=== PATIENT | female | born 1995 | race Caucasian/White ===

== ENCOUNTER 2016-12-13 00:59 | Emergency (ER) | payer OTHER ==
[~2016-12-13] VITALS: Ht 182.9 cm; Wt 63.0 kg
[~2016-12-13 00:59] MED LIST: AMOXICILLIN500 MG PO; BACTRIM,SEPT1 TABLET PO; CIPRO500 MG PO; CLOZARIL100 MG PO; CYCLOBENZAPRINE10 MG PO; FIORICET 50-301 EACH PO; GEODON20 MG PO; IMITREX25 MG PO; IMITREX50 MG PO; KEFLEX500 MG PO; KEPPRA1000 MG PO; KEPPRA500 MG PO; LAMICTAL100 MG PO; LEVETIRACETAM500 MG PO; LORTAB 5-325 M1 EACH PO; MELATONIN5 MG SL; MOTRIN800 MG PO; NORCO 5/3251 TABLET PO; PERCOCET 5/31 TABLET PO; PROAIR HFA8.5 GM IH; REGLAN10 MG PO; RISPERDAL1 MG PO; TOPAMAX25 MG PO; TRINESSA1 EACH PO; VENTOLIN HFA18 GM IH; ZOFRAN ODT4 MG PO; ZOFRAN4 MG PO; ZOFRAN8 MG PO; ZOLOFT100 MG PO
[2016-12-13 02:36] VITALS: BP 139/75
== END 2016-12-13 02:43 | disposition home or self-care (01) ==
LOC: EME 00:59
PROC: 0HQ0XZZ Repair Scalp Skin, External Approach (ICD-10-PCS; principal; 2016-12-13)
DX: S01.01XA Laceration without foreign body of scalp, initial encounter (principal); W22.09XA Striking against other stationary object, initial encounter; F17.200 Nicotine dependence, unspecified, uncomplicated
CPT/HCPCS: 70450; 99281; 99284; J3360

== ENCOUNTER 2016-12-24 14:39 | Emergency (ER) | payer OTHER ==
[~2016-12-24] VITALS: Ht 182.9 cm; Wt 59.9 kg
[2016-12-24 15:35] LABS: HEMATOCRIT 45.7 % (36.0-46.0); MCHC 33.5 G/DL (30.0-36.0); MCV 89.6 FL (83-99); MEAN PLAT.VOLUME 11.1 uM^3 (9.5-12.4); PLATELET COUNT 271 K/uL (156-360); RBC DIS.WIDTH-CV 13.2 % (11.8-14.6); RBC DIS.WIDTH-SD 43.8 % (39-53); WHITE BLOOD COUNT 9.2 K/uL (4.1-10.2)
[2016-12-24 15:49] LABS: CHLORIDE 104 mEq/L (99-109); D-DIMER ELISA < 0.15 mg/L FEU (< 0.57); SODIUM 139 mEq/L (136-147)
[2016-12-24 15:51] LABS: GLUCOSE 90 mg/dL (70-99)
[2016-12-24 15:52] LABS: ANION GAP 12 MEQ/L (2-14)
[2016-12-24 15:53] LABS: TOTAL BILIRUBIN 0.7 mg/dL (0.0-1.0)
[2016-12-24 15:54] LABS: ALKALINE PHOSPHATASE 73 IU/L (3-129)
[2016-12-24 15:55] LABS: GFR ESTIMATE (CALCULATED) > 59 mL/min/
[2016-12-24 15:56] LABS: UREA NITROGEN (BUN) 15 mg/dL (9-23)
[2016-12-24 15:57] LABS: TROP-I INTERPRETATION NEGATIVE; TROPONIN-I < 0.01 ng/mL (0.0-0.30)
[2016-12-24 16:07] LABS: QUANTITATIVE HCG < 4.0 MIU/ML
[2016-12-24 17:13] VITALS: BP 130/68
== END 2016-12-24 17:15 | disposition home or self-care (01) ==
LOC: EME → EDBD 14:39 → EME 17:15
PROVIDERS: Emergency Medicine
DX: R07.9 Chest pain, unspecified (principal); R56.9 Unspecified convulsions; F17.200 Nicotine dependence, unspecified, uncomplicated
CPT/HCPCS: 71010; 80053; 84484; 84702; 85027; 85379; 93005; 99281; 99285; J1885

== ENCOUNTER 2017-03-17 11:54 | Emergency (ER) | payer SELFPAY ==
[~2017-03-17] VITALS: Ht 182.9 cm; Wt 60.7 kg
[2017-03-17 12:43] LABS: HEMATOCRIT 45.5 % (36.0-46.0); MCH 30.1 PG (29.0-34.0); MCHC 33.8 G/DL (30.0-36.0); MEAN PLAT.VOLUME 11.1 uM^3 (9.5-12.4); PLATELET COUNT 240 K/uL (156-360); RBC DIS.WIDTH-CV 12.4 % (11.8-14.6); RED BLOOD COUNT 5.11 M/uL (3.80-5.20); WHITE BLOOD COUNT 7.6 K/uL (4.1-10.2)
[2017-03-17 12:49] LABS: CHLORIDE 105 mEq/L (99-109); POTASSIUM 3.8 mEq/L (3.7-5.4); SODIUM 141 mEq/L (136-147)
[2017-03-17 12:51] LABS: GLUCOSE 104 mg/dL (70-99)
[2017-03-17 12:52] LABS: ANION GAP 12 MEQ/L (2-14)
[2017-03-17 12:54] LABS: SERUM ETHYL ALCOHOL < 10 mg/dL
[2017-03-17 12:55] LABS: GFR ESTIMATE (CALCULATED) > 59 mL/min/
[2017-03-17 12:56] LABS: UREA NITROGEN (BUN) 14 mg/dL (9-23)
[2017-03-17 15:22] LABS: ADD MEDTOX COMMENT Y; AMPHETAMINE NEGATIVE (500 ng/mL); BARBITURATES NEGATIVE (200 ng/mL); BENZODIAZEPINES NEGATIVE (150 ng/mL); COCAINE NEGATIVE (150 ng/mL); INTERNAL CONTROLS VALID? YES; METHADONE NEGATIVE (200 ng/mL); METHAMPHETAMINE NEGATIVE (500 ng/mL); OPIATES (MORPHINE) NEGATIVE (100 ng/mL); OXYCODONE PRESUMPTIVE POSITIVE (100 ng/mL); PHENCYCLIDINE NEGATIVE (25 ng/mL); PROPOXYPHENE NEGATIVE (300 ng/mL); THC CANNABINOIDS PRESUMPTIVE POSITIVE (50 ng/mL); TRICYCLIC ANTIDEPRESSANTS NEGATIVE (300 ng/mL)
[2017-03-17] MEDS ORDERED: KLONOPIN0.5 M1 PO (16:58)
[2017-03-17 17:36] VITALS: BP 161/85
== END 2017-03-17 17:40 | disposition home or self-care (01) ==
LOC: EME 11:54
DX: F43.20 Adjustment disorder, unspecified (principal); F41.9 Anxiety disorder, unspecified; F32.9 Major depressive disorder, single episode, unspecified; G40.909 Epilepsy, unspecified, not intractable, without status epilepticus; Z88.6 Allergy status to analgesic agent; Z88.8 Allergy status to other drugs, medicaments and biological substances; F17.200 Nicotine dependence, unspecified, uncomplicated
CPT/HCPCS: 80048; 84999; 85027; 90839; 99281; 99285; G0480

== ENCOUNTER 2017-03-20 17:05 | Inpatient (IN) | payer OTHER ==
[~2017-03-20] VITALS: Ht 185.4 cm; Wt 60.7 kg
[~2017-03-20 17:05] MED LIST changes: +KLONOPIN0.5 M1 PO
[2017-03-20 17:41] LABS: HEMATOCRIT 41.4 % (36.0-46.0); MCH 30.1 PG (29.0-34.0); MCHC 34.3 G/DL (30.0-36.0); MCV 87.9 FL (83-99); PLATELET COUNT 204 K/uL (156-360); RBC DIS.WIDTH-CV 12.2 % (11.8-14.6); RBC DIS.WIDTH-SD 39.1 % (39-53); RED BLOOD COUNT 4.71 M/uL (3.80-5.20); WHITE BLOOD COUNT 14.3 K/uL (4.1-10.2)
[2017-03-20 17:51] LABS: CHLORIDE 107 mEq/L (99-109); POTASSIUM 3.7 mEq/L (3.7-5.4); SODIUM 140 mEq/L (136-147)
[2017-03-20 17:52] LABS: GLUCOSE 100 mg/dL (70-99)
[2017-03-20 17:54] LABS: ANION GAP 11 MEQ/L (2-14)
[2017-03-20 17:55] LABS: SERUM ETHYL ALCOHOL < 10 mg/dL
[2017-03-20 17:56] LABS: GFR ESTIMATE (CALCULATED) > 59 mL/min/
[2017-03-20 17:57] LABS: UREA NITROGEN (BUN) 15 mg/dL (9-23)
[2017-03-20 18:47] LABS: ADD MIUA? YES; BILIRUBIN NEGATIVE; BLOOD NEGATIVE; COLOR YELLOW ((YELLOW)); GLUCOSE (STRIP) NEGATIVE; KETONES NEGATIVE; LEUKOCYTES TRACE; NITRITE NEGATIVE; PROTEIN (STRIP) >=500; UROBILINOGEN 0.2 MG/DL (0.2-1.0)
[2017-03-20 18:55] LABS: AMPHETAMINE NEGATIVE (500 ng/mL); BARBITURATES NEGATIVE (200 ng/mL); BENZODIAZEPINES PRESUMPTIVE POSITIVE (150 ng/mL); COCAINE NEGATIVE (150 ng/mL); INTERNAL CONTROLS VALID? YES; METHADONE NEGATIVE (200 ng/mL); METHAMPHETAMINE NEGATIVE (500 ng/mL); OPIATES (MORPHINE) PRESUMPTIVE POSITIVE (100 ng/mL); OXYCODONE NEGATIVE (100 ng/mL); PHENCYCLIDINE NEGATIVE (25 ng/mL); PROPOXYPHENE NEGATIVE (300 ng/mL); THC CANNABINOIDS PRESUMPTIVE POSITIVE (50 ng/mL); TRICYCLIC ANTIDEPRESSANTS NEGATIVE (300 ng/mL)
[2017-03-20 18:56] LABS: ADD MEDTOX COMMENT Y
[2017-03-20 19:01] LABS: BACTERIA NONE SEEN /HPF; EPITHELIAL CELLS RARE /HPF; MUCUS NONE SEEN /LPF; RED BLOOD CELLS 0-5 /HPF (0-5); UCUL ADDED? NO; WHITE BLOOD CELLS 0-5 /HPF (0-5)
[2017-03-20 19:25] LABS: BENZODIAZEPINES, URINE SCREEN POSITIVE (200 ng/mL)
[2017-03-20] MEDS ORDERED: PERCOCET 5/31 TABLET PO ×2 (19:56→19:57)
[2017-03-20] MEDS ORDERED: VALIUM5 MG PO (19:59)
[2017-03-20] MEDS ORDERED: ZOLOFT50 MG PO (20:00)
[2017-03-20] MEDS ORDERED: nicotine gum (20:43)
[2017-03-20] MEDS ORDERED: FLOVENT (20:44)
[2017-03-20] MEDS ORDERED: ALBUTEROL INHALLER (20:45)
[2017-03-20 21:12] LABS: POINT-OF-CARE METER ID UU13113702
[2017-03-20] MEDS ORDERED: FIORICET WI1 CAPSULE PO (21:23)
[2017-03-20] MEDS ORDERED: BOTOX (21:25)
[2017-03-21 01:47] VITALS: BP 148/61
[2017-03-21 08:09] VITALS: BP 113/58
[2017-03-21 10:59] LABS: CREATINE KINASE 139 IU/L (1-294); TOTAL CK 139 IU/L (1-294)
[2017-03-21 16:06] VITALS: BP 122/55
[2017-03-22 01:08] LABS: EOSINOPHIL (%) 1.7 % (0-5); EOSINOPHIL COUNT 0.1 K/uL (0-0.3); HEMATOCRIT 39.8 % (36.0-46.0); IMMATURE GRANULOCYTE (%) 0.1 % (0.0-0.7); LYMPHOCYTE COUNT 2.7 K/uL (1.0-2.8); MCH 30.5 PG (29.0-34.0); MCHC 34.2 G/DL (30.0-36.0); MCV 89.2 FL (83-99); MEAN PLAT.VOLUME 11.7 uM^3 (9.5-12.4); MONOCYTE (%) 11.2 % (3-12); MONOCYTE COUNT 0.9 K/uL (0-0.8); NEUTROPHIL (%) 51.8 % (45-76); PLATELET COUNT 204 K/uL (156-360); RBC DIS.WIDTH-CV 12.4 % (11.8-14.6); RBC DIS.WIDTH-SD 41.1 % (39-53); RED BLOOD COUNT 4.46 M/uL (3.80-5.20); WHITE BLOOD COUNT 7.7 K/uL (4.1-10.2)
[2017-03-22 01:11] LABS: CHLORIDE 107 mEq/L (99-109); POTASSIUM 3.5 mEq/L (3.7-5.4); SODIUM 139 mEq/L (136-147)
[2017-03-22 01:13] LABS: GLUCOSE 101 mg/dL (70-99)
[2017-03-22 01:14] LABS: ANION GAP 16 MEQ/L (2-14)
[2017-03-22 01:15] LABS: TOTAL BILIRUBIN 0.4 mg/dL (0.0-1.0)
[2017-03-22 01:17] LABS: ALKALINE PHOSPHATASE 60 IU/L (3-129); GFR ESTIMATE (CALCULATED) > 59 mL/min/
[2017-03-22 01:18] LABS: UREA NITROGEN (BUN) 9 mg/dL (9-23)
== END 2017-03-22 00:56 | DRG 885 ==
LOC: EME 17:05 → EDOF 19:07 → 1WEST 19:07 → ENRESERV 03-21 00:02 → 1WEST 03-21 01:08
PROVIDERS: Hospitalist; Internal Medicine; Physician Assistant Medical; Psychiatry & Neurology Psychiatry
DX: F33.2 Major depressive disorder, recurrent severe without psychotic features (principal); R45.851 Suicidal ideations; F43.12 Post-traumatic stress disorder, chronic; F60.3 Borderline personality disorder; F17.210 Nicotine dependence, cigarettes, uncomplicated; F90.9 Attention-deficit hyperactivity disorder, unspecified type; G40.409 Other generalized epilepsy and epileptic syndromes, not intractable, without status epilepticus; G43.909 Migraine, unspecified, not intractable, without status migrainosus; J45.909 Unspecified asthma, uncomplicated; N80.9 Endometriosis, unspecified; Z59.0 Homelessness; Z91.14 Patient's other noncompliance with medication regimen; Z62.810 Personal history of physical and sexual abuse in childhood; Z62.811 Personal history of psychological abuse in childhood
CPT/HCPCS: 70450; 80048; 80053; 81003; 82550; 82553; 82948; 83605; 84146; 84999; 85025; 85027; 90839; 99281; 99285; G0480; J1953; J2060; J2765; J3360; J3486; J7050

== ENCOUNTER 2017-03-22 00:31 | Inpatient (IN) | payer OTHER ==
[~2017-03-22] VITALS: Ht 182.9 cm; Wt 60.0 kg
[~2017-03-22 00:31] MED LIST changes: +ALBUTEROL INHALLER; +BOTOX; +FIORICET WI1 CAPSULE PO; +FLOVENT; +VALIUM5 MG PO; +ZOLOFT50 MG PO; +nicotine gum
[2017-03-22 01:56] VITALS: BP 121/57
[2017-03-22 06:05] LABS: HEMATOCRIT 35.1 % (36.0-46.0); MCH 30.1 PG (29.0-34.0); MCHC 34.2 G/DL (30.0-36.0); MEAN PLAT.VOLUME 11.5 uM^3 (9.5-12.4); PLATELET COUNT 196 K/uL (156-360); RBC DIS.WIDTH-CV 12.3 % (11.8-14.6); RED BLOOD COUNT 3.99 M/uL (3.80-5.20); WHITE BLOOD COUNT 5.6 K/uL (4.1-10.2)
[2017-03-22 06:44] LABS: ALKALINE PHOSPHATASE 44 IU/L (3-129); ANION GAP 7 MEQ/L (2-14); CHLORIDE 108 MEQ/L (99-109); GFR ESTIMATE (CALCULATED) > 59 mL/min/; GLUCOSE 83 mg/dL (70-99); SAMPLE HEMOLYSIS CHECK 0; SAMPLE ICTERIC CHECK 0; SAMPLE LIPEMIA CHECK 0; SODIUM 141 MEQ/L (136-147); TOTAL BILIRUBIN 0.4 MG/DL (0.0-1.0); UREA NITROGEN (BUN) 9 mg/dL (9-23)
[2017-03-22 06:49] LABS: POTASSIUM 4.3 MEQ/L (3.7-5.4)
[2017-03-22 07:27] VITALS: BP 114/64
[2017-03-22 11:01] VITALS: BP 111/68
[2017-03-22 15:16] VITALS: BP 113/65
[2017-03-22 19:42] VITALS: BP 127/55
[2017-03-22 23:42] VITALS: BP 102/53
[2017-03-23 08:14] VITALS: BP 1115/61
[2017-03-23 09:00] LABS: QUANTITATIVE HCG < 4.0 MIU/ML
[2017-03-23 12:00] VITALS: BP 130/63
[2017-03-23 16:00] VITALS: BP 122/68
[2017-03-23 19:32] VITALS: BP 107/62
[2017-03-23 23:41] VITALS: BP 128/51
[2017-03-24 03:32] VITALS: BP 92/55
[2017-03-24 07:59] VITALS: BP 119/51
[2017-03-24 11:00] VITALS: BP 120/67
[2017-03-24] MEDS ORDERED: TRILEPTAL300 MG PO (14:17)
[2017-03-24] MEDS ORDERED: NICOTINE PATCH1 EAC2 TD (14:17)
[2017-03-24] MEDS ORDERED: KEPPRA1000 MG PO (14:17)
[2017-03-24 16:00] VITALS: BP 155/79
[2017-03-24] MEDS ORDERED: ZOFRAN4 MG PO (20:59)
[2017-03-24] MEDS ORDERED: CYCLOBENZAPRINE5 MG PO (21:00)
[2017-03-24] MEDS ORDERED: TYLENOL ARTHRI650 MG PO (21:02)
== END 2017-03-24 20:00 | DRG 101 ==
LOC: 5SOUTH 00:31 → ENRESERV 00:32 → 5SOUTH 01:08
PROVIDERS: Internal Medicine
DX: G40.909 Epilepsy, unspecified, not intractable, without status epilepticus (principal); F33.2 Major depressive disorder, recurrent severe without psychotic features; F43.12 Post-traumatic stress disorder, chronic; F60.3 Borderline personality disorder; F41.9 Anxiety disorder, unspecified; R45.851 Suicidal ideations; F17.210 Nicotine dependence, cigarettes, uncomplicated; F12.90 Cannabis use, unspecified, uncomplicated
CPT/HCPCS: 80053; 83605; 84702; 85027; 93005; 93306; J1644; J1885; J1953; J2405; J2765; J7050; J7120

== ENCOUNTER 2017-03-24 20:09 | Inpatient (IN) | payer OTHER ==
[~2017-03-24] VITALS: Ht 182.9 cm; Wt 60.0 kg
[~2017-03-24 20:09] MED LIST changes: +NICOTINE PATCH1 EAC2 TD; +TRILEPTAL300 MG PO
[2017-03-24 20:23] VITALS: BP 123/65
[2017-03-24] MEDS ORDERED: ZOFRAN4 MG PO (20:59)
[2017-03-24] MEDS ORDERED: CYCLOBENZAPRINE5 MG PO (21:00)
[2017-03-24] MEDS ORDERED: TYLENOL ARTHRI650 MG PO (21:02)
[2017-03-25 07:03] VITALS: BP 119/54
[2017-03-25 15:26] VITALS: BP 124/62
[2017-03-26 06:10] VITALS: BP 114/56
[2017-03-26 07:26] VITALS: BP 106/50
[2017-03-26 15:18] VITALS: BP 132/90
[2017-03-27 07:36] VITALS: BP 116/72
[2017-03-27 12:38] LABS: ADD MIUA? YES; BILIRUBIN NEGATIVE; BLOOD MODERATE; COLOR YELLOW ((YELLOW)); GLUCOSE (STRIP) NEGATIVE; KETONES NEGATIVE; LEUKOCYTES NEGATIVE; NITRITE NEGATIVE; PROTEIN (STRIP) >=500; SPECIFIC GRAVITY 1.014 (1.000-1.030); UROBILINOGEN 0.2 MG/DL (0.2-1.0)
[2017-03-27 12:44] LABS: BACTERIA NONE SEEN /HPF; EPITHELIAL CELLS RARE /HPF; MUCUS TRACE /LPF; RED BLOOD CELLS TNTC /HPF (0-5); WHITE BLOOD CELLS 0-5 /HPF (0-5)
[2017-03-27 16:04] VITALS: BP 133/71
[2017-03-28 07:45] VITALS: BP 117/64
[2017-03-28] MEDS ORDERED: SERTRALINE HCL100 MG PO (09:54)
[2017-03-28] MEDS ORDERED: VALIUM5 MG PO (09:54)
[2017-03-28] MEDS ORDERED: KEPPRA1000 MG PO (09:54)
[2017-03-28] MEDS ORDERED: TRILEPTAL300 MG PO (09:54)
== END 2017-03-28 11:45 | disposition home or self-care (01) | DRG 882 ==
LOC: 1WEST 20:09
PROVIDERS: Psychiatry & Neurology Psychiatry
DX: F45.9 Somatoform disorder, unspecified (principal); F41.1 Generalized anxiety disorder; F60.3 Borderline personality disorder; M25.562 Pain in left knee; W06.XXXA Fall from bed, initial encounter; Y92.230 Patient room in hospital as the place of occurrence of the external cause; G40.909 Epilepsy, unspecified, not intractable, without status epilepticus; J45.909 Unspecified asthma, uncomplicated; F43.10 Post-traumatic stress disorder, unspecified; F32.9 Major depressive disorder, single episode, unspecified; F12.90 Cannabis use, unspecified, uncomplicated; F17.210 Nicotine dependence, cigarettes, uncomplicated; F10.10 Alcohol abuse, uncomplicated; Z59.0 Homelessness
CPT/HCPCS: 73560; 81003; 97150 GO; 97165 GO; Q0177

== ENCOUNTER 2017-04-24 15:09 | Emergency (ER) | payer OTHER ==
[~2017-04-24] VITALS: Ht 182.9 cm; Wt 62.7 kg
[~2017-04-24 15:09] MED LIST changes: +CYCLOBENZAPRINE5 MG PO; +SERTRALINE HCL100 MG PO; +TYLENOL ARTHRI650 MG PO
[2017-04-24] MEDS ORDERED: VISTARIL25 MG PO (15:40)
[2017-04-24] MEDS ORDERED: PERCOCET 5/31 TABLET PO (15:41)
[2017-04-24 15:47] LABS: CHLORIDE 111 mEq/L (99-109); POTASSIUM 3.6 mEq/L (3.7-5.4); SODIUM 144 mEq/L (136-147)
[2017-04-24 15:48] LABS: GLUCOSE 96 mg/dL (70-99)
[2017-04-24 15:50] LABS: ANION GAP 12 MEQ/L (2-14)
[2017-04-24 15:52] LABS: GFR ESTIMATE (CALCULATED) > 59 mL/min/
[2017-04-24 15:53] LABS: UREA NITROGEN (BUN) 13 mg/dL (9-23)
[2017-04-24 16:00] LABS: QUANTITATIVE HCG < 4.0 MIU/ML
[2017-04-24 16:38] LABS: ADD MIUA? NO; BILIRUBIN NEGATIVE; BLOOD NEGATIVE; COLOR YELLOW ((YELLOW)); GLUCOSE (STRIP) NEGATIVE; KETONES 5; LEUKOCYTES NEGATIVE; NITRITE NEGATIVE; PROTEIN (STRIP) 30; SPECIFIC GRAVITY 1.023 (1.000-1.030); UROBILINOGEN 0.2 MG/DL (0.2-1.0)
[2017-04-24 16:39] LABS: UCUL ADDED? NO
[2017-04-24] MEDS ORDERED: TRILEPTAL600 MG PO (16:59)
[2017-04-24] MEDS ORDERED: VALIUM5 MG PO (16:59)
[2017-04-24 18:00] VITALS: BP 118/70
[2017-04-25] MEDS ORDERED: IBUPROFEN600 MG PO (18:53)
== END 2017-04-24 18:15 | disposition home or self-care (01) ==
LOC: EME 15:09
PROVIDERS: Emergency Medicine
DX: G40.909 Epilepsy, unspecified, not intractable, without status epilepticus (principal); F41.9 Anxiety disorder, unspecified; F17.200 Nicotine dependence, unspecified, uncomplicated
CPT/HCPCS: 80048; 81003; 84702; 93005; 99281; 99284; J2405; J7030

== ENCOUNTER 2017-04-25 17:24 | Emergency (ER) | payer OTHER ==
[~2017-04-25] VITALS: Ht 182.9 cm; Wt 59.0 kg
[~2017-04-25 17:24] MED LIST changes: +TRILEPTAL600 MG PO; +VISTARIL25 MG PO
[2017-04-25 17:59] LABS: EOSINOPHIL (%) 2.1 % (0-5); EOSINOPHIL COUNT 0.2 K/uL (0-0.3); HEMATOCRIT 35.7 % (36.0-46.0); IMMATURE GRANULOCYTE (%) 0.1 % (0.0-0.7); INSTRUMENT ABS NEUTROPHIL CT 4.7 K/uL; LYMPHOCYTE COUNT 2.3 K/uL (1.0-2.8); MCH 30.2 PG (29.0-34.0); MCHC 34.5 G/DL (30.0-36.0); MCV 87.7 FL (83-99); MEAN PLAT.VOLUME 11.3 uM^3 (9.5-12.4); MONOCYTE COUNT 0.5 K/uL (0-0.8); NEUTROPHIL (%) 61.5 % (45-76); NEUTROPHIL COUNT 4.7 K/uL (1.8-6.4); PLATELET COUNT 244 K/uL (156-360); RBC DIS.WIDTH-CV 12.7 % (11.8-14.6); RBC DIS.WIDTH-SD 40.4 % (39-53); RED BLOOD COUNT 4.07 M/uL (3.80-5.20); WHITE BLOOD COUNT 7.7 K/uL (4.1-10.2)
[2017-04-25 18:14] LABS: CHLORIDE 107 mEq/L (99-109); POTASSIUM 3.9 mEq/L (3.7-5.4); SODIUM 139 mEq/L (136-147)
[2017-04-25 18:16] LABS: GLUCOSE 97 mg/dL (70-99)
[2017-04-25 18:17] LABS: ANION GAP 15 MEQ/L (2-14)
[2017-04-25 18:20] LABS: GFR ESTIMATE (CALCULATED) > 59 mL/min/
[2017-04-25 18:21] LABS: UREA NITROGEN (BUN) 7 mg/dL (9-23)
[2017-04-25] MEDS ORDERED: IBUPROFEN600 MG PO (18:53)
[2017-04-25 19:07] VITALS: BP 122/78
== END 2017-04-25 19:08 | disposition home or self-care (01) ==
LOC: EME 17:24
PROVIDERS: Emergency Medicine
DX: S70.01XA Contusion of right hip, initial encounter (principal); G40.909 Epilepsy, unspecified, not intractable, without status epilepticus; W17.89XA Other fall from one level to another, initial encounter; F17.200 Nicotine dependence, unspecified, uncomplicated; Z88.6 Allergy status to analgesic agent; Z88.8 Allergy status to other drugs, medicaments and biological substances
CPT/HCPCS: 80048; 85025; 99281; 99283; J1885

== ENCOUNTER 2017-04-28 20:07 | Emergency (ER) | payer OTHER ==
[~2017-04-28] VITALS: Ht 167.6 cm; Wt 64.0 kg
[~2017-04-28 20:07] MED LIST changes: +IBUPROFEN600 MG PO
[2017-04-28 21:07] LABS: HEMATOCRIT 34.8 % (36.0-46.0); MCH 30.5 PG (29.0-34.0); MCHC 34.5 G/DL (30.0-36.0); MCV 88.5 FL (83-99); MEAN PLAT.VOLUME 10.8 uM^3 (9.5-12.4); PLATELET COUNT 271 K/uL (156-360); RBC DIS.WIDTH-CV 12.8 % (11.8-14.6); RBC DIS.WIDTH-SD 41.5 % (39-53); RED BLOOD COUNT 3.93 M/uL (3.80-5.20)
[2017-04-28 21:11] LABS: CHLORIDE 106 mEq/L (99-109); POTASSIUM 3.6 mEq/L (3.7-5.4); SODIUM 143 mEq/L (136-147)
[2017-04-28 21:12] LABS: GLUCOSE 78 mg/dL (70-99)
[2017-04-28 21:14] LABS: ANION GAP 11 MEQ/L (2-14)
[2017-04-28 21:15] LABS: SERUM ETHYL ALCOHOL < 10 mg/dL
[2017-04-28 21:16] LABS: GFR ESTIMATE (CALCULATED) > 59 mL/min/
[2017-04-28 21:17] LABS: UREA NITROGEN (BUN) 11 mg/dL (9-23)
[2017-04-28 21:19] LABS: CREATINE KINASE 53 IU/L (1-294)
[2017-04-28 21:32] LABS: QUANTITATIVE HCG < 4.0 MIU/ML
[2017-04-28 23:13] LABS: AMPHETAMINE NEGATIVE (500 ng/mL); COCAINE NEGATIVE (150 ng/mL); METHAMPHETAMINE NEGATIVE (500 ng/mL); OPIATES (MORPHINE) NEGATIVE (100 ng/mL); PHENCYCLIDINE NEGATIVE (25 ng/mL); THC CANNABINOIDS PRESUMPTIVE POSITIVE (50 ng/mL)
[2017-04-28 23:14] LABS: ADD MEDTOX COMMENT Y; BARBITURATES NEGATIVE (200 ng/mL); BENZODIAZEPINES PRESUMPTIVE POSITIVE (150 ng/mL); INTERNAL CONTROLS VALID? YES; METHADONE NEGATIVE (200 ng/mL); OXYCODONE NEGATIVE (100 ng/mL); PROPOXYPHENE NEGATIVE (300 ng/mL); TRICYCLIC ANTIDEPRESSANTS NEGATIVE (300 ng/mL)
[2017-04-28 23:52] VITALS: BP 135/88
[2017-04-29 01:28] LABS: BENZODIAZEPINES, URINE SCREEN POSITIVE (200 ng/mL)
== END 2017-04-28 23:53 | disposition home or self-care (01) ==
LOC: EME → EDSEX 20:07 → EDBD 20:07 → EME 23:53
PROVIDERS: Emergency Medicine
DX: R56.9 Unspecified convulsions (principal); F12.10 Cannabis abuse, uncomplicated; F17.200 Nicotine dependence, unspecified, uncomplicated
CPT/HCPCS: 80048; 80156; 80184; 80185; 81003; 82550; 84702; 84999; 85027; 99281; 99284; G0480; J1953; J2250; J7030; J7050

== ENCOUNTER 2017-05-01 18:45 | Emergency (ER) | payer OTHER ==
[~2017-05-01] VITALS: Ht 182.9 cm; Wt 59.7 kg
[2017-05-01 19:12] LABS: HEMATOCRIT 36.4 % (36.0-46.0); MCHC 34.1 G/DL (30.0-36.0); MCV 87.9 FL (83-99); MEAN PLAT.VOLUME 10.5 uM^3 (9.5-12.4); PLATELET COUNT 298 K/uL (156-360); RBC DIS.WIDTH-CV 12.6 % (11.8-14.6); RBC DIS.WIDTH-SD 41.1 % (39-53); RED BLOOD COUNT 4.14 M/uL (3.80-5.20)
[2017-05-01 19:30] LABS: CHLORIDE 106 mEq/L (99-109); POTASSIUM 3.9 mEq/L (3.7-5.4); SODIUM 140 mEq/L (136-147)
[2017-05-01 19:31] LABS: GLUCOSE 96 mg/dL (70-99)
[2017-05-01 19:33] LABS: ANION GAP 10 MEQ/L (2-14)
[2017-05-01 19:35] LABS: GFR ESTIMATE (CALCULATED) > 59 mL/min/
[2017-05-01 19:36] LABS: UREA NITROGEN (BUN) 11 mg/dL (9-23)
[2017-05-01 19:43] LABS: QUANTITATIVE HCG < 4.0 MIU/ML
[2017-05-01 21:24] VITALS: BP 110/56
== END 2017-05-01 21:26 | disposition home or self-care (01) ==
LOC: EME
PROVIDERS: Emergency Medicine
DX: G40.909 Epilepsy, unspecified, not intractable, without status epilepticus (principal); J45.909 Unspecified asthma, uncomplicated; F41.9 Anxiety disorder, unspecified; F32.9 Major depressive disorder, single episode, unspecified; F17.200 Nicotine dependence, unspecified, uncomplicated; Z88.8 Allergy status to other drugs, medicaments and biological substances
CPT/HCPCS: 80048; 84702; 85027; 99281; 99284; J1953; J2250; J7050

== ENCOUNTER 2017-05-15 12:53 | Inpatient (IN) | payer OTHER ==
[2017-05-15] VITALS (11 sets, daily range): BP systolic 100–121; BP diastolic 51–71
[~2017-05-15] VITALS: Ht 182.9 cm; Wt 70.5 kg
[2017-05-15 13:43] LABS: EOSINOPHIL (%) 0.2 % (0-5); HEMATOCRIT 37.8 % (36.0-46.0); IMMATURE GRANULOCYTE (%) 0.5 % (0.0-0.7); IMMATURE GRANULOCYTE COUNT 0.1 K/uL; INSTRUMENT ABS NEUTROPHIL CT 10.1 K/uL; LYMPHOCYTE COUNT 1.7 K/uL (1.0-2.8); MCH 30.2 PG (29.0-34.0); MCHC 33.9 G/DL (30.0-36.0); MCV 89.2 FL (83-99); MEAN PLAT.VOLUME 10.7 uM^3 (9.5-12.4); MONOCYTE (%) 5.3 % (3-12); MONOCYTE COUNT 0.7 K/uL (0-0.8); NEUTROPHIL COUNT 10.1 K/uL (1.8-6.4); PLATELET COUNT 226 K/uL (156-360); RBC DIS.WIDTH-SD 42.4 % (39-53); RED BLOOD COUNT 4.24 M/uL (3.80-5.20); WHITE BLOOD COUNT 12.6 K/uL (4.1-10.2)
[2017-05-15 13:45] LABS: ADD MIUA? NO; BILIRUBIN NEGATIVE; BLOOD NEGATIVE; COLOR YELLOW ((YELLOW)); GLUCOSE (STRIP) NEGATIVE; KETONES NEGATIVE; LEUKOCYTES NEGATIVE; NITRITE NEGATIVE; PROTEIN (STRIP) NEGATIVE; SPECIFIC GRAVITY 1.008 (1.000-1.030); UCUL ADDED? NO; UROBILINOGEN 0.2 MG/DL (0.2-1.0)
[2017-05-15 13:51] LABS: CHLORIDE 107 mEq/L (99-109); POTASSIUM 3.6 mEq/L (3.7-5.4); SODIUM 140 mEq/L (136-147)
[2017-05-15 13:53] LABS: GLUCOSE 81 mg/dL (70-99)
[2017-05-15 13:54] LABS: ANION GAP 9 MEQ/L (2-14)
[2017-05-15 13:55] LABS: TOTAL BILIRUBIN 0.3 mg/dL (0.0-1.0)
[2017-05-15 13:56] LABS: SERUM ETHYL ALCOHOL < 10 mg/dL
[2017-05-15 13:57] LABS: GFR ESTIMATE (CALCULATED) > 59 mL/min/
[2017-05-15 13:58] LABS: ALKALINE PHOSPHATASE 55 IU/L (3-129)
[2017-05-15 13:58] LABS: AMPHETAMINE NEGATIVE (500 ng/mL); BARBITURATES NEGATIVE (200 ng/mL); BENZODIAZEPINES PRESUMPTIVE POSITIVE (150 ng/mL); COCAINE NEGATIVE (150 ng/mL); INTERNAL CONTROLS VALID? YES; METHADONE NEGATIVE (200 ng/mL); METHAMPHETAMINE NEGATIVE (500 ng/mL); OPIATES (MORPHINE) NEGATIVE (100 ng/mL); OXYCODONE NEGATIVE (100 ng/mL); PHENCYCLIDINE NEGATIVE (25 ng/mL); PROPOXYPHENE NEGATIVE (300 ng/mL); THC CANNABINOIDS PRESUMPTIVE POSITIVE (50 ng/mL); TRICYCLIC ANTIDEPRESSANTS NEGATIVE (300 ng/mL)
[2017-05-15 13:59] LABS: ADD MEDTOX COMMENT Y
[2017-05-15 13:59] LABS: UREA NITROGEN (BUN) 9 mg/dL (9-23)
[2017-05-15 14:00] LABS: SALICYLATE < 5.0 MG/DL (15-30)
[2017-05-15 14:01] LABS: CREATINE KINASE 104 IU/L (1-294); TOTAL CK 104 IU/L (1-294)
[2017-05-15 14:07] LABS: QUANTITATIVE HCG < 4.0 MIU/ML
[2017-05-15 14:08] LABS: CK-MB 1.1 ng/mL (0.0-4.9)
[2017-05-15 14:48] LABS: BASE EXCESS -0.4 mEq/L (-3 to +3); BICARBONATE 22.6 mEq/L (22-26); CARBOXY HGB 1.4 % (0-5); COMMENTS - BLOOD GASES A+C+; DEVICE PB 980; METHEMOGLOBIN 0.9 % (0-1.5); PCO2 31 mm Hg (35-45); PO2 155 mm Hg (80-100); SITE RR; pH 7.47 (7.35-7.45)
[2017-05-15 14:49] LABS: FI02 50 %; MODE SPONT; PEEP 5 CM/H20; PRES. SUPPORT 10 CM/H2O; TOTAL RESP RATE 19 resp/min
[2017-05-15 15:45] LABS: BENZODIAZEPINES, URINE SCREEN POSITIVE (200 ng/mL)
[2017-05-15 17:51] LABS: METH RESISTANT S AUREUS PCR NEGATIVE (NEGATIVE)
[2017-05-15 17:53] LABS: PROBE CHECK PASS; SPECIMEN PROCESSING CONTROL PASS
[2017-05-16] VITALS (24 sets, daily range): BP systolic 90–120; BP diastolic 31–68
[2017-05-16 05:56] LABS: HEMATOCRIT 32.6 % (36.0-46.0); MCH 30.2 PG (29.0-34.0); MCHC 33.4 G/DL (30.0-36.0); MCV 90.3 FL (83-99); MEAN PLAT.VOLUME 10.7 uM^3 (9.5-12.4); PLATELET COUNT 194 K/uL (156-360); RBC DIS.WIDTH-CV 13.2 % (11.8-14.6); RBC DIS.WIDTH-SD 43.8 % (39-53); RED BLOOD COUNT 3.61 M/uL (3.80-5.20)
[2017-05-16 06:10] LABS: CHLORIDE 111 mEq/L (99-109); POTASSIUM 3.4 mEq/L (3.7-5.4)
[2017-05-16 06:11] LABS: SODIUM 141 mEq/L (136-147)
[2017-05-16 06:12] LABS: GLUCOSE 87 mg/dL (70-99)
[2017-05-16 06:14] LABS: ANION GAP 8 MEQ/L (2-14)
[2017-05-16 06:16] LABS: GFR ESTIMATE (CALCULATED) > 59 mL/min/
[2017-05-16 06:17] LABS: UREA NITROGEN (BUN) 10 mg/dL (9-23)
[2017-05-16] MEDS ORDERED: DIAZEPAM5 MG PO (08:46)
[2017-05-16] MEDS ORDERED: ATARAX,VISTARIL25 MG PO (08:47)
[2017-05-16] MEDS ORDERED: ENDOCET 5-3251 EACH PO (08:47)
[2017-05-16] MEDS ORDERED: TRILEPTAL600 MG PO (08:47)
[2017-05-16] MEDS ORDERED: LIDOCAINE HCL35 GM TP (08:48)
[2017-05-16] MEDS ORDERED: LEVETIRACETAM500 MG PO (08:48)
[2017-05-16] MEDS ORDERED: ZOFRAN4 MG PO (08:51)
[2017-05-16 09:01] LABS: BASE EXCESS 0 mEq/L (-3 to +3); BICARBONATE 24.8 mEq/L (22-26); CARBOXY HGB 1.4 % (0-5); METHEMOGLOBIN 1.2 % (0-1.5)
[2017-05-16 09:02] LABS: PCO2 40 mm Hg (35-45); PO2 53 mm Hg (80-100)
[2017-05-16 09:03] LABS: COMMENTS - BLOOD GASES NA C+; DEVICE VENT; FI02 30 %; MECHANICAL RATE 16 resp/min; MODE AC; PEEP 5 CM/H20; SITE RR; TIDAL VOLUME 450 ML; TOTAL RESP RATE 16 resp/min
[2017-05-16] MEDS ORDERED: ZOLOFT100 MG PO (09:05)
[2017-05-16 09:33] LABS: MAGNESIUM 1.6 mg/dL (1.3-2.7)
[2017-05-17] VITALS (24 sets, daily range): BP systolic 90–141; BP diastolic 37–73
[2017-05-17 08:39] LABS: HEMATOCRIT 32.6 % (36.0-46.0); MCHC 32.8 G/DL (30.0-36.0); MCV 94.5 FL (83-99); MEAN PLAT.VOLUME 11.3 uM^3 (9.5-12.4); PLATELET COUNT 152 K/uL (156-360); RBC DIS.WIDTH-CV 14.1 % (11.8-14.6); RBC DIS.WIDTH-SD 48.2 % (39-53); RED BLOOD COUNT 3.45 M/uL (3.80-5.20); WHITE BLOOD COUNT 13.7 K/uL (4.1-10.2)
[2017-05-17 09:07] LABS: ANION GAP 12 MEQ/L (2-14); CHLORIDE 108 MEQ/L (99-109); GFR ESTIMATE (CALCULATED) > 59 mL/min/; GLUCOSE 87 mg/dL (70-99); MAGNESIUM 1.7 mg/dl (1.3-2.7); SAMPLE HEMOLYSIS CHECK 0; SAMPLE ICTERIC CHECK 0; SAMPLE LIPEMIA CHECK 0; SODIUM 140 MEQ/L (136-147); UREA NITROGEN (BUN) 9 mg/dL (9-23)
[2017-05-18] VITALS (23 sets, daily range): BP systolic 90–121; BP diastolic 38–64
[2017-05-18 00:17] LABS: COMMENTS - BLOOD GASES A+C+; DEVICE VENT; FI02 35 %; MECHANICAL RATE 16 resp/min; MODE AC; PCO2 45 mm Hg (35-45); PEEP 5 CM/H20; SITE RR; TIDAL VOLUME 450 ML; pH 7.41 (7.35-7.45)
[2017-05-18 00:18] LABS: BASE EXCESS 3.3 mEq/L (-3 to +3); BICARBONATE 28.5 mEq/L (22-26); CARBOXY HGB 0.8 % (0-5); METHEMOGLOBIN 1.4 % (0-1.5); PO2 82 mm Hg (80-100)
[2017-05-18 00:54] LABS: EOSINOPHIL (%) 1.8 % (0-5); EOSINOPHIL COUNT 0.2 K/uL (0-0.3); HEMATOCRIT 29.8 % (36.0-46.0); IMMATURE GRANULOCYTE (%) 0.4 % (0.0-0.7); INSTRUMENT ABS NEUTROPHIL CT 7.6 K/uL; MCH 30.5 PG (29.0-34.0); MCHC 33.2 G/DL (30.0-36.0); MCV 91.7 FL (83-99); MEAN PLAT.VOLUME 10.7 uM^3 (9.5-12.4); MONOCYTE (%) 6.1 % (3-12); MONOCYTE COUNT 0.6 K/uL (0-0.8); NEUTROPHIL (%) 81.2 % (45-76); NEUTROPHIL COUNT 7.6 K/uL (1.8-6.4); PLATELET COUNT 132 K/uL (156-360); RBC DIS.WIDTH-CV 13.7 % (11.8-14.6); RBC DIS.WIDTH-SD 46.7 % (39-53); RED BLOOD COUNT 3.25 M/uL (3.80-5.20); WHITE BLOOD COUNT 9.4 K/uL (4.1-10.2)
[2017-05-18 01:07] LABS: CHLORIDE 109 mEq/L (99-109); POTASSIUM 3.7 mEq/L (3.7-5.4); SODIUM 139 mEq/L (136-147)
[2017-05-18 01:09] LABS: GLUCOSE 94 mg/dL (70-99)
[2017-05-18 01:11] LABS: ANION GAP 7 MEQ/L (2-14)
[2017-05-18 01:13] LABS: ALKALINE PHOSPHATASE 49 IU/L (3-129); GFR ESTIMATE (CALCULATED) > 59 mL/min/
[2017-05-18 01:14] LABS: UREA NITROGEN (BUN) 7 mg/dL (9-23)
[2017-05-18 01:15] LABS: DIRECT BILIRUBIN 0.1 mg/dL (0.0-0.3)
[2017-05-18 01:16] LABS: TOTAL CK 1308 IU/L (1-294)
[2017-05-18 01:21] LABS: TOTAL BILIRUBIN 0.2 mg/dL (0.0-1.0)
[2017-05-18 01:24] LABS: CREATINE KINASE 1308 IU/L (1-294)
[2017-05-18 03:10] LABS: CK-MB 9.3 ng/mL (0.0-4.9)
[2017-05-18 03:21] LABS: SAMPLE HEMOLYSIS CHECK 0; SAMPLE ICTERIC CHECK 0; SAMPLE LIPEMIA CHECK 0
[2017-05-18 03:27] LABS: TRIGLYCERIDES 101 MG/DL (Normal: <150)
[2017-05-19] VITALS (20 sets, daily range): BP systolic 101–140; BP diastolic 45–86
[2017-05-19 05:47] LABS: EOSINOPHIL COUNT 0.1 K/uL (0-0.3); HEMATOCRIT 28.6 % (36.0-46.0); IMMATURE GRANULOCYTE (%) 0.2 % (0.0-0.7); LYMPHOCYTE COUNT 0.9 K/uL (1.0-2.8); MCHC 32.5 G/DL (30.0-36.0); MCV 92.3 FL (83-99); MONOCYTE COUNT 0.5 K/uL (0-0.8); NEUTROPHIL (%) 72.1 % (45-76); PLATELET COUNT 136 K/uL (156-360); RBC DIS.WIDTH-CV 13.9 % (11.8-14.6); RBC DIS.WIDTH-SD 47.6 % (39-53); WHITE BLOOD COUNT 5.5 K/uL (4.1-10.2)
[2017-05-19 06:37] LABS: ANION GAP 7 MEQ/L (2-14); CHLORIDE 106 MEQ/L (99-109); GFR ESTIMATE (CALCULATED) > 59 mL/min/; GLUCOSE 79 mg/dL (70-99); MAGNESIUM 1.8 mg/dl (1.3-2.7); POTASSIUM 3.8 MEQ/L (3.7-5.4); SAMPLE HEMOLYSIS CHECK 0; SAMPLE ICTERIC CHECK 0; SAMPLE LIPEMIA CHECK 0; SODIUM 141 MEQ/L (136-147); UREA NITROGEN (BUN) 5 mg/dL (9-23)
[2017-05-19 20:10] LABS: BASE EXCESS 6.3 mEq/L (-3 to +3); BICARBONATE 28.4 mEq/L (22-26); COMMENTS - BLOOD GASES A+C+; DEVICE NC; METHEMOGLOBIN 1.4 % (0-1.5); O2 FLOW 3 L/MIN; PCO2 31 mm Hg (35-45); PO2 54 mm Hg (80-100); SITE RR; pH 7.57 (7.35-7.45)
[2017-05-19 20:11] LABS: TOTAL RESP RATE 40 resp/min
[2017-05-20] VITALS (18 sets, daily range): BP systolic 105–134; BP diastolic 52–94
[2017-05-20 05:40] LABS: EOSINOPHIL (%) 0.1 % (0-5); HEMATOCRIT 32.1 % (36.0-46.0); IMMATURE GRANULOCYTE (%) 0.3 % (0.0-0.7); INSTRUMENT ABS NEUTROPHIL CT 6.4 K/uL; LYMPHOCYTE COUNT 0.6 K/uL (1.0-2.8); MCH 30.5 PG (29.0-34.0); MCHC 33.3 G/DL (30.0-36.0); MCV 91.5 FL (83-99); MEAN PLAT.VOLUME 11.4 uM^3 (9.5-12.4); MONOCYTE (%) 4.7 % (3-12); MONOCYTE COUNT 0.4 K/uL (0-0.8); NEUTROPHIL (%) 86.2 % (45-76); NEUTROPHIL COUNT 6.4 K/uL (1.8-6.4); RBC DIS.WIDTH-CV 13.5 % (11.8-14.6); RBC DIS.WIDTH-SD 45.7 % (39-53); RED BLOOD COUNT 3.51 M/uL (3.80-5.20); WHITE BLOOD COUNT 7.4 K/uL (4.1-10.2)
[2017-05-20 05:52] LABS: PLATELET COUNT 203 K/uL (156-360)
[2017-05-20 05:58] LABS: ANION GAP 9 MEQ/L (2-14); CHLORIDE 106 MEQ/L (99-109); GFR ESTIMATE (CALCULATED) > 59 mL/min/; MAGNESIUM 1.7 mg/dl (1.3-2.7); POTASSIUM 4.2 MEQ/L (3.7-5.4); SAMPLE HEMOLYSIS CHECK 0; SAMPLE ICTERIC CHECK 0; SAMPLE LIPEMIA CHECK 0; SODIUM 142 MEQ/L (136-147); UREA NITROGEN (BUN) 4 mg/dL (9-23)
[2017-05-20 06:00] LABS: GLUCOSE 107 mg/dL (70-99)
[2017-05-21 00:06] VITALS: BP 109/58
[2017-05-21 03:46] VITALS: BP 111/65
[2017-05-21 09:05] VITALS: BP 121/64
[2017-05-21 19:19] VITALS: BP 135/63
[2017-05-22 03:55] VITALS: BP 123/77
[2017-05-22 05:57] LABS: MCH 30.3 PG (29.0-34.0); MCHC 33.4 G/DL (30.0-36.0); MCV 90.7 FL (83-99); MEAN PLAT.VOLUME 10.4 uM^3 (9.5-12.4); RBC DIS.WIDTH-CV 13.1 % (11.8-14.6); RBC DIS.WIDTH-SD 43.1 % (39-53); RED BLOOD COUNT 3.53 M/uL (3.80-5.20); WHITE BLOOD COUNT 5.6 K/uL (4.1-10.2)
[2017-05-22 06:01] LABS: PLATELET COUNT 271 K/uL (156-360)
[2017-05-22 08:07] VITALS: BP 110/54
[2017-05-22] MEDS ORDERED: ZOFRAN4 MG PO (11:59)
[2017-05-22] MEDS ORDERED: DIAZEPAM5 MG PO (11:59)
[2017-05-22] MEDS ORDERED: AMOX TR-K CLV1 EAC4 PO (11:59)
[2017-05-22] MEDS ORDERED: LEVETIRACETAM500 MG PO (11:59)
[2017-05-22] MEDS ORDERED: PROAIR HFA8.5 GM IH (11:59)
[2017-05-22] MEDS ORDERED: ENDOCET 5-3251 EACH PO (11:59)
[2017-05-22] MEDS ORDERED: TRILEPTAL600 MG PO (11:59)
[2017-05-22] MEDS ORDERED: ZOLOFT100 MG PO (11:59)
== END 2017-05-22 15:16 | disposition home or self-care (01) | DRG 207 ==
LOC: EME 12:53 → 4WEST 14:19 → EDOF 14:19 → 4WEST 14:19 → ENRESERV 14:20 → 4WEST 16:28 → ENRESERV 05-20 15:00 → 5SOUTH 05-20 16:41
PROVIDERS: Emergency Medicine; Internal Medicine; Internal Medicine Critical Care Medicine; Obstetrics & Gynecology; Specialist
PROC: 0BH17EZ Insertion of Endotracheal Airway into Trachea, Via Natural or Artificial Opening (ICD-10-PCS; principal; 2017-05-15)
PROC: 5A1955Z Respiratory Ventilation, Greater than 96 Consecutive Hours (ICD-10-PCS; principal; 2017-05-15)
DX: J96.01 Acute respiratory failure with hypoxia (principal); G40.901 Epilepsy, unspecified, not intractable, with status epilepticus; J69.0 Pneumonitis due to inhalation of food and vomit; E87.3 Alkalosis; D64.9 Anemia, unspecified; F31.9 Bipolar disorder, unspecified; F41.1 Generalized anxiety disorder; F45.9 Somatoform disorder, unspecified; F60.9 Personality disorder, unspecified; F12.90 Cannabis use, unspecified, uncomplicated; F17.200 Nicotine dependence, unspecified, uncomplicated; Z59.0 Homelessness; Z23 Encounter for immunization
CPT/HCPCS: 36600; 70450; 71010; 80048; 80053; 80076; 80185; 81003; 82550; 82553; 82803; 83735; 84100; 84478; 84702; 84999; 85025; 85027; 87040; 87070; 87086; 87205; 87641; 90686; 93005; 94002; 94003; 94640; 94640 76; 94799; 95819; 97530 GP; 99202; 99281; 99285; G0480; J1100; J1165; J1650; J1953; J2060; J2250; J2543; J2704; J2765; J3010; J3475; J7030; J7040; J7050; J7120; S0028

== ENCOUNTER 2017-05-22 21:00 | Emergency (ER) | payer OTHER ==
[~2017-05-22] VITALS: Ht 182.9 cm; Wt 64.1 kg
[~2017-05-22 21:00] MED LIST changes: +AMOX TR-K CLV1 EAC4 PO; +ATARAX,VISTARIL25 MG PO; +DIAZEPAM5 MG PO; +ENDOCET 5-3251 EACH PO; +LIDOCAINE HCL35 GM TP
[2017-05-22 22:29] VITALS: BP 112/62
== END 2017-05-22 22:31 | disposition home or self-care (01) ==
LOC: EME → EDBD 21:00 → EME 21:00
DX: G40.909 Epilepsy, unspecified, not intractable, without status epilepticus (principal); M54.2 Cervicalgia; R07.89 Other chest pain; F17.200 Nicotine dependence, unspecified, uncomplicated
CPT/HCPCS: 99281; 99284; J2250

== ENCOUNTER 2017-05-22 23:35 | Emergency (ER) | payer OTHER ==
[~2017-05-22] VITALS: Ht 182.9 cm; Wt 57.8 kg
[2017-05-23 00:25] LABS: HEMATOCRIT 33.4 % (36.0-46.0); MCH 29.9 PG (29.0-34.0); MCHC 33.5 G/DL (30.0-36.0); MCV 89.3 FL (83-99); MEAN PLAT.VOLUME 9.9 uM^3 (9.5-12.4); PLATELET COUNT 308 K/uL (156-360); RBC DIS.WIDTH-CV 12.8 % (11.8-14.6); RBC DIS.WIDTH-SD 42.1 % (39-53); RED BLOOD COUNT 3.74 M/uL (3.80-5.20); WHITE BLOOD COUNT 9.9 K/uL (4.1-10.2)
[2017-05-23 00:33] LABS: CHLORIDE 108 mEq/L (99-109); SODIUM 141 mEq/L (136-147)
[2017-05-23 00:34] LABS: GLUCOSE 84 mg/dL (70-99)
[2017-05-23 00:36] LABS: ANION GAP 10 MEQ/L (2-14)
[2017-05-23 00:38] LABS: GFR ESTIMATE (CALCULATED) > 59 mL/min/
[2017-05-23 00:39] LABS: UREA NITROGEN (BUN) 16 mg/dL (9-23)
[2017-05-23 00:43] LABS: POTASSIUM 3.2 mEq/L (3.7-5.4)
[2017-05-23 01:26] LABS: ADD MIUA? YES; BILIRUBIN NEGATIVE; BLOOD SMALL; COLOR YELLOW ((YELLOW)); GLUCOSE (STRIP) NEGATIVE; KETONES 5; LEUKOCYTES TRACE; NITRITE NEGATIVE; PROTEIN (STRIP) 100; SPECIFIC GRAVITY 1.023 (1.000-1.030)
[2017-05-23 01:32] LABS: BACTERIA NONE SEEN /HPF; EPITHELIAL CELLS RARE /HPF; MUCUS TRACE /LPF; UCUL ADDED? NO; WHITE BLOOD CELLS 0-5 /HPF (0-5)
[2017-05-23 01:34] LABS: AMPHETAMINE NEGATIVE (500 ng/mL); BARBITURATES PRESUMPTIVE POSITIVE (200 ng/mL); BENZODIAZEPINES PRESUMPTIVE POSITIVE (150 ng/mL); COCAINE NEGATIVE (150 ng/mL); INTERNAL CONTROLS VALID? YES; METHADONE NEGATIVE (200 ng/mL); METHAMPHETAMINE NEGATIVE (500 ng/mL); OPIATES (MORPHINE) NEGATIVE (100 ng/mL); OXYCODONE PRESUMPTIVE POSITIVE (100 ng/mL); PHENCYCLIDINE NEGATIVE (25 ng/mL); PROPOXYPHENE NEGATIVE (300 ng/mL); THC CANNABINOIDS PRESUMPTIVE POSITIVE (50 ng/mL); TRICYCLIC ANTIDEPRESSANTS NEGATIVE (300 ng/mL)
[2017-05-23 01:35] LABS: ADD MEDTOX COMMENT Y
[2017-05-23 02:24] LABS: BARBITUATES QUANT VALUE 0 NG/ML; BENZODIAZEPINES, URINE SCREEN POSITIVE (200 ng/mL)
[2017-05-23 03:00] VITALS: BP 114/60
== END 2017-05-23 03:00 | disposition home or self-care (01) ==
LOC: EME → EDBD 23:35 → EME 23:35
PROVIDERS: Emergency Medicine
DX: J18.9 Pneumonia, unspecified organism (principal); F19.10 Other psychoactive substance abuse, uncomplicated; G40.909 Epilepsy, unspecified, not intractable, without status epilepticus; F17.200 Nicotine dependence, unspecified, uncomplicated
CPT/HCPCS: 80048; 81003; 84999; 85027; 99281; 99285; J1953; J7030; J7050

== ENCOUNTER 2017-05-25 17:28 | Emergency (ER) | payer OTHER ==
[~2017-05-25] VITALS: Ht 172.7 cm; Wt 63.7 kg
[2017-05-25 18:40] LABS: EOSINOPHIL (%) 1.2 % (0-5); EOSINOPHIL COUNT 0.2 K/uL (0-0.3); HEMATOCRIT 39.8 % (36.0-46.0); IMMATURE GRANULOCYTE COUNT 0.1 K/uL; INSTRUMENT ABS NEUTROPHIL CT 8.2 K/uL; LYMPHOCYTE COUNT 3.9 K/uL (1.0-2.8); MCH 30.1 PG (29.0-34.0); MCHC 33.4 G/DL (30.0-36.0); MEAN PLAT.VOLUME 10.6 uM^3 (9.5-12.4); MONOCYTE (%) 8.6 % (3-12); MONOCYTE COUNT 1.2 K/uL (0-0.8); NEUTROPHIL (%) 60.1 % (45-76); NEUTROPHIL COUNT 8.2 K/uL (1.8-6.4); PLATELET COUNT 714 K/uL (156-360); RBC DIS.WIDTH-CV 13.4 % (11.8-14.6); RBC DIS.WIDTH-SD 43.1 % (39-53); RED BLOOD COUNT 4.42 M/uL (3.80-5.20); WHITE BLOOD COUNT 13.6 K/uL (4.1-10.2)
[2017-05-25 18:43] LABS: CHLORIDE 106 mEq/L (99-109); POTASSIUM 3.7 mEq/L (3.7-5.4); SODIUM 141 mEq/L (136-147)
[2017-05-25 18:44] LABS: MAGNESIUM 2.1 mg/dL (1.3-2.7)
[2017-05-25 18:47] LABS: ANION GAP 16 MEQ/L (2-14); GLUCOSE 119 mg/dL (70-99)
[2017-05-25 18:48] LABS: TOTAL BILIRUBIN 0.2 mg/dL (0.0-1.0)
[2017-05-25 18:49] LABS: ALKALINE PHOSPHATASE 69 IU/L (3-129); GFR ESTIMATE (CALCULATED) > 59 mL/min/
[2017-05-25 18:51] LABS: UREA NITROGEN (BUN) 10 mg/dL (9-23)
[2017-05-25 18:52] LABS: CREATINE KINASE 60 IU/L (1-294); TOTAL CK 60 IU/L (1-294)
[2017-05-25 18:58] LABS: QUANTITATIVE HCG < 4.0 MIU/ML
[2017-05-25 18:59] LABS: CK-MB 0.9 ng/mL (0.0-4.9)
[2017-05-25 19:33] LABS: ADD MIUA? YES; BILIRUBIN NEGATIVE; BLOOD NEGATIVE; COLOR AMBER ((YELLOW)); GLUCOSE (STRIP) NEGATIVE; KETONES 5; LEUKOCYTES NEGATIVE; NITRITE NEGATIVE; PROTEIN (STRIP) >=500; SPECIFIC GRAVITY 1.025 (1.000-1.030)
[2017-05-25 19:44] LABS: ADD MEDTOX COMMENT Y; AMPHETAMINE NEGATIVE (500 ng/mL); BARBITURATES PRESUMPTIVE POSITIVE (200 ng/mL); BENZODIAZEPINES PRESUMPTIVE POSITIVE (150 ng/mL); COCAINE NEGATIVE (150 ng/mL); INTERNAL CONTROLS VALID? YES; METHADONE NEGATIVE (200 ng/mL); METHAMPHETAMINE NEGATIVE (500 ng/mL); OPIATES (MORPHINE) NEGATIVE (100 ng/mL); OXYCODONE NEGATIVE (100 ng/mL); PHENCYCLIDINE NEGATIVE (25 ng/mL); PROPOXYPHENE NEGATIVE (300 ng/mL); THC CANNABINOIDS PRESUMPTIVE POSITIVE (50 ng/mL); TRICYCLIC ANTIDEPRESSANTS NEGATIVE (300 ng/mL)
[2017-05-25 19:55] LABS: AMORPHOUS PHOSPHATE CRYSTALS 4+; BACTERIA RARE /HPF; CASTS NONE SEEN /LPF; CRYSTALS PRESENT; EPITHELIAL CELLS 1+ /HPF; MUCUS NONE SEEN /LPF; RED BLOOD CELLS 0-5 /HPF (0-5); UCUL ADDED? NO; WHITE BLOOD CELLS 0-5 /HPF (0-5)
[2017-05-25 20:12] LABS: BARBITUATES QUANT VALUE 0 NG/ML; BENZODIAZEPINES, URINE SCREEN POSITIVE (200 ng/mL)
[2017-05-25 20:52] VITALS: BP 127/67
[2017-05-26] MEDS ORDERED: OXCARBAZEPINE600 MG PO (19:50)
[2017-05-26] MEDS ORDERED: ATARAX,VISTARIL25 MG PO (19:56)
[2017-05-26] MEDS ORDERED: EXCEDRIN EXTRA1 EACH PO (20:00)
== END 2017-05-25 20:52 | disposition home or self-care (01) ==
LOC: EME 17:28
PROVIDERS: Emergency Medicine
DX: G40.89 Other seizures (principal); F31.9 Bipolar disorder, unspecified; F17.200 Nicotine dependence, unspecified, uncomplicated; Z88.8 Allergy status to other drugs, medicaments and biological substances
CPT/HCPCS: 71010; 80053; 81003; 82550; 82553; 83605; 83735; 84702; 84999; 85025; 93005; 99281; 99285; J2250

== ENCOUNTER 2017-05-26 15:45 | Observation (INO) | payer OTHER ==
[~2017-05-26] VITALS: Ht 182.9 cm; Wt 57.8 kg
[2017-05-26 16:33] LABS: HEMATOCRIT 33.4 % (36.0-46.0); MCH 30.2 PG (29.0-34.0); MCHC 33.5 G/DL (30.0-36.0); RBC DIS.WIDTH-CV 13.7 % (11.8-14.6); RBC DIS.WIDTH-SD 44.3 % (39-53); RED BLOOD COUNT 3.71 M/uL (3.80-5.20); WHITE BLOOD COUNT 11.6 K/uL (4.1-10.2)
[2017-05-26 16:40] LABS: CHLORIDE 109 mEq/L (99-109); SODIUM 142 mEq/L (136-147)
[2017-05-26 16:42] LABS: GLUCOSE 110 mg/dL (70-99)
[2017-05-26 16:43] LABS: ANION GAP 11 MEQ/L (2-14)
[2017-05-26 16:44] LABS: TOTAL BILIRUBIN 0.2 mg/dL (0.0-1.0)
[2017-05-26 16:45] LABS: ALKALINE PHOSPHATASE 61 IU/L (3-129); SERUM ETHYL ALCOHOL < 10 mg/dL
[2017-05-26 16:46] LABS: GFR ESTIMATE (CALCULATED) > 59 mL/min/
[2017-05-26 16:47] LABS: UREA NITROGEN (BUN) 8 mg/dL (9-23)
[2017-05-26 16:49] LABS: CREATINE KINASE 87 IU/L (1-294)
[2017-05-26 17:00] LABS: MEAN PLAT.VOLUME 9.9 uM^3 (9.5-12.4); PLAT.SUFFICIENCY INCREASED
[2017-05-26 17:02] LABS: PLATELET COUNT 471 K/uL (156-360)
[2017-05-26 18:30] LABS: ADD MIUA? YES; BILIRUBIN NEGATIVE; BLOOD NEGATIVE; COLOR AMBER ((YELLOW)); GLUCOSE (STRIP) NEGATIVE; KETONES 5; LEUKOCYTES NEGATIVE; NITRITE NEGATIVE; PROTEIN (STRIP) 100; SPECIFIC GRAVITY 1.025 (1.000-1.030)
[2017-05-26 18:43] LABS: BACTERIA NONE SEEN /HPF; EPITHELIAL CELLS 1+ /HPF; MUCUS TRACE /LPF; RED BLOOD CELLS 0-5 /HPF (0-5); UCUL ADDED? NO; WHITE BLOOD CELLS 0-5 /HPF (0-5)
[2017-05-26 18:53] LABS: AMPHETAMINE NEGATIVE (500 ng/mL); BARBITURATES NEGATIVE (200 ng/mL); BENZODIAZEPINES PRESUMPTIVE POSITIVE (150 ng/mL); COCAINE NEGATIVE (150 ng/mL); INTERNAL CONTROLS VALID? YES; METHADONE NEGATIVE (200 ng/mL); METHAMPHETAMINE NEGATIVE (500 ng/mL); OPIATES (MORPHINE) NEGATIVE (100 ng/mL); OXYCODONE NEGATIVE (100 ng/mL); PHENCYCLIDINE NEGATIVE (25 ng/mL); PROPOXYPHENE NEGATIVE (300 ng/mL); THC CANNABINOIDS PRESUMPTIVE POSITIVE (50 ng/mL); TRICYCLIC ANTIDEPRESSANTS NEGATIVE (300 ng/mL)
[2017-05-26 18:54] LABS: ADD MEDTOX COMMENT Y
[2017-05-26 19:18] LABS: BENZODIAZEPINES, URINE SCREEN POSITIVE (200 ng/mL)
[2017-05-26] MEDS ORDERED: OXCARBAZEPINE600 MG PO (19:50)
[2017-05-26] MEDS ORDERED: ATARAX,VISTARIL25 MG PO (19:56)
[2017-05-26] MEDS ORDERED: EXCEDRIN EXTRA1 EACH PO (20:00)
[2017-05-26 20:34] VITALS: BP 108/58
[2017-05-27 00:07] VITALS: BP 101/57
[2017-05-27 04:00] VITALS: BP 114/58
[2017-05-27 05:48] LABS: HEMATOCRIT 32.9 % (36.0-46.0); MCH 30.1 PG (29.0-34.0); MCHC 32.5 G/DL (30.0-36.0); MCV 92.4 FL (83-99); MEAN PLAT.VOLUME 10.4 uM^3 (9.5-12.4); PLATELET COUNT 435 K/uL (156-360); RBC DIS.WIDTH-SD 47.7 % (39-53); RED BLOOD COUNT 3.56 M/uL (3.80-5.20); WHITE BLOOD COUNT 7.3 K/uL (4.1-10.2)
[2017-05-27 06:56] LABS: ALKALINE PHOSPHATASE 46 IU/L (3-129); ANION GAP 7 MEQ/L (2-14); CHLORIDE 112 MEQ/L (99-109); GFR ESTIMATE (CALCULATED) > 59 mL/min/; GLUCOSE 84 mg/dL (70-99); SAMPLE HEMOLYSIS CHECK 1; SAMPLE ICTERIC CHECK 0; SAMPLE LIPEMIA CHECK 0; SODIUM 143 MEQ/L (136-147); TOTAL BILIRUBIN 0.3 MG/DL (0.0-1.0); UREA NITROGEN (BUN) 6 mg/dL (9-23)
[2017-05-27 07:04] LABS: POTASSIUM 4.6 MEQ/L (3.7-5.4)
[2017-05-27 08:00] VITALS: BP 110/57
[2017-05-27] MEDS ORDERED: TRILEPTAL600 MG PO (12:07)
[2017-05-27] MEDS ORDERED: LEVETIRACETAM500 MG PO (12:07)
[2017-05-27] MEDS ORDERED: DIAZEPAM5 MG PO (12:07)
[2017-05-27] MEDS ORDERED: PROAIR HFA8.5 GM IH (12:07)
[2017-05-27 12:46] VITALS: BP 119/55
== END 2017-05-27 15:15 | disposition home or self-care (01) ==
LOC: EME 15:45 → 5WEST 18:47 → EDOF 18:47 → ENRESERV 18:48 → 5WEST 20:16
PROVIDERS: Emergency Medicine; Internal Medicine
DX: G40.409 Other generalized epilepsy and epileptic syndromes, not intractable, without status epilepticus (principal); E87.1 Hypo-osmolality and hyponatremia; E87.6 Hypokalemia; F43.10 Post-traumatic stress disorder, unspecified; F60.3 Borderline personality disorder; F41.1 Generalized anxiety disorder; R78.4 Finding of other drugs of addictive potential in blood; F45.9 Somatoform disorder, unspecified; F32.9 Major depressive disorder, single episode, unspecified; K21.9 Gastro-esophageal reflux disease without esophagitis; Z87.01 Personal history of pneumonia (recurrent); Z59.0 Homelessness; F17.200 Nicotine dependence, unspecified, uncomplicated; Z88.8 Allergy status to other drugs, medicaments and biological substances
CPT/HCPCS: 71010; 80053; 81003; 82550; 83605; 84999; 85027; 99281; 99285; G0378; G0480; J1630; J1644; J1953; J2060; J2250; J7030; J7050

== ENCOUNTER 2017-05-28 13:23 | Emergency (ER) | payer OTHER ==
[~2017-05-28] VITALS: Ht 165.1 cm; Wt 56.6 kg
[~2017-05-28 13:23] MED LIST changes: +EXCEDRIN EXTRA1 EACH PO; +OXCARBAZEPINE600 MG PO
[2017-05-28 14:06] LABS: EOSINOPHIL (%) 0.8 % (0-5); EOSINOPHIL COUNT 0.1 K/uL (0-0.3); HEMATOCRIT 35.9 % (36.0-46.0); IMMATURE GRANULOCYTE (%) 0.5 % (0.0-0.7); IMMATURE GRANULOCYTE COUNT 0.1 K/uL; INSTRUMENT ABS NEUTROPHIL CT 11.5 K/uL; LYMPHOCYTE COUNT 2.8 K/uL (1.0-2.8); MCH 30.4 PG (29.0-34.0); MCHC 33.7 G/DL (30.0-36.0); MCV 90.2 FL (83-99); MEAN PLAT.VOLUME 9.9 uM^3 (9.5-12.4); MONOCYTE (%) 6.6 % (3-12); NEUTROPHIL (%) 74.1 % (45-76); NEUTROPHIL COUNT 11.5 K/uL (1.8-6.4); RBC DIS.WIDTH-CV 13.9 % (11.8-14.6); RBC DIS.WIDTH-SD 45.6 % (39-53); RED BLOOD COUNT 3.98 M/uL (3.80-5.20); WHITE BLOOD COUNT 15.5 K/uL (4.1-10.2)
[2017-05-28 14:07] LABS: ADD MEDTOX COMMENT Y; AMPHETAMINE NEGATIVE (500 ng/mL); BARBITURATES NEGATIVE (200 ng/mL); BENZODIAZEPINES PRESUMPTIVE POSITIVE (150 ng/mL); COCAINE NEGATIVE (150 ng/mL); INTERNAL CONTROLS VALID? YES; METHADONE NEGATIVE (200 ng/mL); METHAMPHETAMINE NEGATIVE (500 ng/mL); OPIATES (MORPHINE) NEGATIVE (100 ng/mL); OXYCODONE NEGATIVE (100 ng/mL); PHENCYCLIDINE NEGATIVE (25 ng/mL); PROPOXYPHENE NEGATIVE (300 ng/mL); THC CANNABINOIDS PRESUMPTIVE POSITIVE (50 ng/mL); TRICYCLIC ANTIDEPRESSANTS NEGATIVE (300 ng/mL)
[2017-05-28 14:08] LABS: PLATELET COUNT 583 K/uL (156-360)
[2017-05-28 14:13] LABS: CHLORIDE 107 mEq/L (99-109); POTASSIUM 3.7 mEq/L (3.7-5.4); SODIUM 143 mEq/L (136-147)
[2017-05-28 14:16] LABS: GLUCOSE 99 mg/dL (70-99)
[2017-05-28 14:17] LABS: ANION GAP 12 MEQ/L (2-14)
[2017-05-28 14:19] LABS: ALKALINE PHOSPHATASE 68 IU/L (3-129); SERUM ETHYL ALCOHOL < 10 mg/dL
[2017-05-28 14:20] LABS: GFR ESTIMATE (CALCULATED) > 59 mL/min/
[2017-05-28 14:21] LABS: UREA NITROGEN (BUN) 7 mg/dL (9-23)
[2017-05-28 14:28] LABS: QUANTITATIVE HCG < 4.0 MIU/ML
[2017-05-28 14:30] LABS: BENZODIAZEPINES, URINE SCREEN POSITIVE (200 ng/mL)
[2017-05-28 14:31] LABS: TOTAL BILIRUBIN 0.3 mg/dL (0.0-1.0)
[2017-05-28 15:31] VITALS: BP 118/70
== END 2017-05-28 15:35 | disposition home or self-care (01) ==
LOC: EME 13:23
PROVIDERS: Emergency Medicine
DX: R56.9 Unspecified convulsions (principal); J45.909 Unspecified asthma, uncomplicated; K21.9 Gastro-esophageal reflux disease without esophagitis; F41.9 Anxiety disorder, unspecified; F32.9 Major depressive disorder, single episode, unspecified; F17.200 Nicotine dependence, unspecified, uncomplicated
CPT/HCPCS: 80053; 84702; 84999; 85025; 99281; 99283; G0480; J2250

== ENCOUNTER 2017-05-30 15:42 | Emergency (ER) | payer OTHER ==
[~2017-05-30] VITALS: Ht 167.6 cm; Wt 60.2 kg
[2017-05-30 16:35] LABS: POINT-OF-CARE METER ID UU13113702
[2017-05-30 18:43] VITALS: BP 105/50
== END 2017-05-30 18:42 | disposition home or self-care (01) ==
LOC: EME → EDBD 15:42 → EME 15:42
PROVIDERS: Emergency Medicine
DX: F44.5 Conversion disorder with seizures or convulsions (principal); J45.909 Unspecified asthma, uncomplicated; F32.9 Major depressive disorder, single episode, unspecified; K21.9 Gastro-esophageal reflux disease without esophagitis; F41.9 Anxiety disorder, unspecified; F17.200 Nicotine dependence, unspecified, uncomplicated; Z88.8 Allergy status to other drugs, medicaments and biological substances
CPT/HCPCS: 82948; 99281; 99285; J2250

== ENCOUNTER 2017-06-11 20:30 | Emergency (ER) | payer OTHER ==
[~2017-06-11] VITALS: Ht 182.9 cm; Wt 61.1 kg
[~2017-06-11 20:30] MED LIST changes: +VIMPAT50 MG PO
[2017-06-11 23:17] LABS: INTERNAL CONTROL VALID? YES
[2017-06-11 23:26] LABS: AMPHETAMINE NEGATIVE (500 ng/mL); BARBITURATES NEGATIVE (200 ng/mL); BENZODIAZEPINES PRESUMPTIVE POSITIVE (150 ng/mL); COCAINE NEGATIVE (150 ng/mL); INTERNAL CONTROLS VALID? YES; METHADONE NEGATIVE (200 ng/mL); METHAMPHETAMINE NEGATIVE (500 ng/mL); OPIATES (MORPHINE) NEGATIVE (100 ng/mL); OXYCODONE NEGATIVE (100 ng/mL); PHENCYCLIDINE NEGATIVE (25 ng/mL); PROPOXYPHENE NEGATIVE (300 ng/mL); THC CANNABINOIDS PRESUMPTIVE POSITIVE (50 ng/mL); TRICYCLIC ANTIDEPRESSANTS NEGATIVE (300 ng/mL)
[2017-06-11 23:27] LABS: ADD MEDTOX COMMENT Y
[2017-06-12 00:07] VITALS: BP 112/64
[2017-06-12 03:58] LABS: BENZODIAZEPINES, URINE SCREEN POSITIVE (200 ng/mL)
== END 2017-06-12 00:08 | disposition home or self-care (01) ==
LOC: EME 20:30
PROVIDERS: Emergency Medicine
DX: G40.909 Epilepsy, unspecified, not intractable, without status epilepticus (principal); T42.6X5A Adverse effect of other antiepileptic and sedative-hypnotic drugs, initial encounter; F12.10 Cannabis abuse, uncomplicated; K21.9 Gastro-esophageal reflux disease without esophagitis; J45.909 Unspecified asthma, uncomplicated; F41.9 Anxiety disorder, unspecified; F32.9 Major depressive disorder, single episode, unspecified; F31.9 Bipolar disorder, unspecified; G43.909 Migraine, unspecified, not intractable, without status migrainosus; F17.200 Nicotine dependence, unspecified, uncomplicated; Z88.8 Allergy status to other drugs, medicaments and biological substances
CPT/HCPCS: 84703; 84999; 99281; 99284

== ENCOUNTER 2017-06-12 19:45 | Emergency (ER) | payer OTHER ==
[~2017-06-12] VITALS: Ht 182.9 cm; Wt 65.4 kg
[2017-06-12 20:26] LABS: HEMATOCRIT 34.4 % (36.0-46.0); MCH 30.3 PG (29.0-34.0); MCHC 33.4 G/DL (30.0-36.0); MCV 90.8 FL (83-99); MEAN PLAT.VOLUME 11.6 uM^3 (9.5-12.4); PLATELET COUNT 302 K/uL (156-360); RBC DIS.WIDTH-CV 13.9 % (11.8-14.6); RBC DIS.WIDTH-SD 45.7 % (39-53); RED BLOOD COUNT 3.79 M/uL (3.80-5.20); WHITE BLOOD COUNT 9.9 K/uL (4.1-10.2)
[2017-06-12 21:25] LABS: ANION GAP 7 MEQ/L (2-14); CHLORIDE 106 MEQ/L (99-109); GFR ESTIMATE (CALCULATED) > 59 mL/min/; GLUCOSE 74 mg/dL (70-99); POTASSIUM 4.1 MEQ/L (3.7-5.4); SAMPLE HEMOLYSIS CHECK 0; SAMPLE ICTERIC CHECK 0; SAMPLE LIPEMIA CHECK 0; SODIUM 143 MEQ/L (136-147); UREA NITROGEN (BUN) 11 mg/dL (9-23)
[2017-06-12 21:27] LABS: PHENOBARBITAL < 5.0 MCG/ML (15-40)
[2017-06-13 00:40] VITALS: BP 120/62
== END 2017-06-13 00:41 | disposition home or self-care (01) ==
LOC: EME → EDBD 19:45 → EME 06-13 00:41
PROVIDERS: Emergency Medicine
DX: R56.9 Unspecified convulsions (principal); F17.200 Nicotine dependence, unspecified, uncomplicated; J45.909 Unspecified asthma, uncomplicated; F32.9 Major depressive disorder, single episode, unspecified; K21.9 Gastro-esophageal reflux disease without esophagitis; F41.9 Anxiety disorder, unspecified
CPT/HCPCS: 80048; 80156; 80184; 80185; 81003; 85027; 93005; 99281; 99285; J2250

== ENCOUNTER 2017-06-16 20:28 | Emergency (ER) | payer OTHER ==
[~2017-06-16] VITALS: Ht 182.9 cm; Wt 67.3 kg
[2017-06-16 20:54] LABS: HEMATOCRIT 33.4 % (36.0-46.0); MCH 29.8 PG (29.0-34.0); MCHC 32.9 G/DL (30.0-36.0); MCV 90.5 FL (83-99); MEAN PLAT.VOLUME 10.4 uM^3 (9.5-12.4); PLATELET COUNT 244 K/uL (156-360); RBC DIS.WIDTH-CV 13.6 % (11.8-14.6); RBC DIS.WIDTH-SD 45.4 % (39-53); RED BLOOD COUNT 3.69 M/uL (3.80-5.20); WHITE BLOOD COUNT 11.5 K/uL (4.1-10.2)
[2017-06-16 21:03] LABS: CHLORIDE 105 mEq/L (99-109); POTASSIUM 3.8 mEq/L (3.7-5.4); SODIUM 139 mEq/L (136-147)
[2017-06-16 21:05] LABS: GLUCOSE 82 mg/dL (70-99)
[2017-06-16 21:06] LABS: ANION GAP 8 MEQ/L (2-14)
[2017-06-16 21:09] LABS: GFR ESTIMATE (CALCULATED) > 59 mL/min/
[2017-06-16 21:15] LABS: UREA NITROGEN (BUN) 23 mg/dL (9-23)
[2017-06-16 21:18] LABS: QUANTITATIVE HCG < 4.0 MIU/ML
[2017-06-16 23:57] VITALS: BP 03/64
[2017-06-17] MEDS ORDERED: KEPPRA1000 MG PO (21:25)
[2017-06-17] MEDS ORDERED: VALIUM5 MG PO (21:25)
== END 2017-06-17 00:06 | disposition home or self-care (01) ==
LOC: EME 20:28
PROVIDERS: Emergency Medicine
DX: G40.909 Epilepsy, unspecified, not intractable, without status epilepticus (principal); K21.9 Gastro-esophageal reflux disease without esophagitis; J45.909 Unspecified asthma, uncomplicated; F41.9 Anxiety disorder, unspecified; F31.9 Bipolar disorder, unspecified; F32.9 Major depressive disorder, single episode, unspecified; G43.909 Migraine, unspecified, not intractable, without status migrainosus; F17.200 Nicotine dependence, unspecified, uncomplicated; Z88.8 Allergy status to other drugs, medicaments and biological substances
CPT/HCPCS: 70450; 80048; 84702; 85027; 99281; 99285; J2250

== ENCOUNTER 2017-06-17 20:22 | Emergency (ER) | payer OTHER ==
[~2017-06-17] VITALS: Ht 167.6 cm; Wt 64.6 kg
[2017-06-17] MEDS ORDERED: VALIUM5 MG PO (21:25)
[2017-06-17] MEDS ORDERED: KEPPRA1000 MG PO (21:25)
[2017-06-17 22:14] VITALS: BP 123/70
== END 2017-06-17 22:15 | disposition home or self-care (01) ==
LOC: EME → EDSEX 20:22 → EME 20:22 → EDBD 20:22 → EME 22:15
DX: G40.909 Epilepsy, unspecified, not intractable, without status epilepticus (principal); J45.909 Unspecified asthma, uncomplicated; F32.9 Major depressive disorder, single episode, unspecified; K21.9 Gastro-esophageal reflux disease without esophagitis; F41.9 Anxiety disorder, unspecified; F17.200 Nicotine dependence, unspecified, uncomplicated; Z88.8 Allergy status to other drugs, medicaments and biological substances
CPT/HCPCS: 80048; 99281; 99284; J2250

== ENCOUNTER 2017-06-19 20:57 | Emergency (ER) | payer OTHER ==
[~2017-06-19] VITALS: Ht 182.9 cm; Wt 64.4 kg
[2017-06-19 22:08] VITALS: BP 123/69
== END 2017-06-19 22:33 | disposition home or self-care (01) ==
LOC: EME → EDBD 20:57 → EME 22:33
DX: G40.909 Epilepsy, unspecified, not intractable, without status epilepticus (principal); J45.909 Unspecified asthma, uncomplicated; K21.9 Gastro-esophageal reflux disease without esophagitis; F41.9 Anxiety disorder, unspecified; F32.9 Major depressive disorder, single episode, unspecified; F31.9 Bipolar disorder, unspecified; G43.909 Migraine, unspecified, not intractable, without status migrainosus; F17.200 Nicotine dependence, unspecified, uncomplicated; Z88.8 Allergy status to other drugs, medicaments and biological substances
CPT/HCPCS: 99281; 99284; J2250

== ENCOUNTER 2017-06-23 20:16 | Emergency (ER) | payer OTHER ==
[~2017-06-23] VITALS: Ht 177.8 cm; Wt 69.2 kg
[2017-06-23 20:42] LABS: HEMATOCRIT 33.1 % (36.0-46.0); MCH 30.1 PG (29.0-34.0); MCHC 32.9 G/DL (30.0-36.0); MCV 91.4 FL (83-99); MEAN PLAT.VOLUME 10.5 uM^3 (9.5-12.4); PLATELET COUNT 214 K/uL (156-360); RBC DIS.WIDTH-CV 13.7 % (11.8-14.6); RBC DIS.WIDTH-SD 46.3 % (39-53); RED BLOOD COUNT 3.62 M/uL (3.80-5.20); WHITE BLOOD COUNT 9.9 K/uL (4.1-10.2)
[2017-06-23 20:50] LABS: CHLORIDE 107 mEq/L (99-109); POTASSIUM 3.4 mEq/L (3.7-5.4); SODIUM 137 mEq/L (136-147)
[2017-06-23 20:52] LABS: GLUCOSE 115 mg/dL (70-99)
[2017-06-23 20:53] LABS: ANION GAP 9 MEQ/L (2-14)
[2017-06-23 20:56] LABS: GFR ESTIMATE (CALCULATED) > 59 mL/min/; UREA NITROGEN (BUN) 18 mg/dL (9-23)
[2017-06-23 21:18] LABS: ADD MIUA? NO; BILIRUBIN NEGATIVE; BLOOD NEGATIVE; COLOR STRAW ((YELLOW)); GLUCOSE (STRIP) NEGATIVE; KETONES NEGATIVE; LEUKOCYTES NEGATIVE; NITRITE NEGATIVE; PROTEIN (STRIP) 30; SPECIFIC GRAVITY 1.004 (1.000-1.030); UCUL ADDED? NO; UROBILINOGEN 0.2 MG/DL (0.2-1.0)
[2017-06-23 22:34] VITALS: BP 132/68
== END 2017-06-23 22:34 | disposition home or self-care (01) ==
LOC: EME → EDBD 20:16 → EME 20:16
DX: G40.909 Epilepsy, unspecified, not intractable, without status epilepticus (principal); E87.6 Hypokalemia; K21.9 Gastro-esophageal reflux disease without esophagitis; J45.909 Unspecified asthma, uncomplicated; F41.9 Anxiety disorder, unspecified; F32.9 Major depressive disorder, single episode, unspecified; F17.200 Nicotine dependence, unspecified, uncomplicated; F12.90 Cannabis use, unspecified, uncomplicated
CPT/HCPCS: 80048; 81003; 85027; 99281; 99284; J0780; J1885; J7030

== ENCOUNTER 2017-06-24 21:03 | Observation (INO) | payer OTHER ==
[~2017-06-24] VITALS: Ht 182.9 cm; Wt 70.4 kg
[2017-06-24 21:43] LABS: HEMATOCRIT 32.1 % (36.0-46.0); MCH 29.9 PG (29.0-34.0); MCV 90.7 FL (83-99); MEAN PLAT.VOLUME 10.7 uM^3 (9.5-12.4); PLATELET COUNT 229 K/uL (156-360); RBC DIS.WIDTH-CV 13.7 % (11.8-14.6); RBC DIS.WIDTH-SD 46.2 % (39-53); RED BLOOD COUNT 3.54 M/uL (3.80-5.20)
[2017-06-24 21:54] LABS: CHLORIDE 109 mEq/L (99-109); SODIUM 140 mEq/L (136-147)
[2017-06-24 21:56] LABS: GLUCOSE 114 mg/dL (70-99)
[2017-06-24 21:57] LABS: ANION GAP 10 MEQ/L (2-14)
[2017-06-24 21:58] LABS: TOTAL BILIRUBIN 0.2 mg/dL (0.0-1.0)
[2017-06-24 21:59] LABS: ALKALINE PHOSPHATASE 60 IU/L (3-129)
[2017-06-24 22:00] LABS: GFR ESTIMATE (CALCULATED) > 59 mL/min/
[2017-06-24 22:01] LABS: UREA NITROGEN (BUN) 11 mg/dL (9-23)
[2017-06-24 22:03] LABS: CREATINE KINASE 81 IU/L (1-294); LIPASE 34 U/L (1.0-51.0); TOTAL CK 81 IU/L (1-294)
[2017-06-24 22:09] LABS: QUANTITATIVE HCG < 4.0 MIU/ML
[2017-06-24 22:10] LABS: CK-MB 1.1 ng/mL (0.0-4.9)
[2017-06-25 01:16] LABS: SERUM ETHYL ALCOHOL 90 mg/dL
[2017-06-25 01:23] VITALS: BP 106/53
[2017-06-25 07:25] VITALS: BP 127/78
[2017-06-25 10:17] LABS: HEMATOCRIT 31.7 % (36.0-46.0); MCH 30.5 PG (29.0-34.0); MCHC 33.4 G/DL (30.0-36.0); MCV 91.4 FL (83-99); MEAN PLAT.VOLUME 10.5 uM^3 (9.5-12.4); PLATELET COUNT 201 K/uL (156-360); RBC DIS.WIDTH-SD 46.8 % (39-53); RED BLOOD COUNT 3.47 M/uL (3.80-5.20); WHITE BLOOD COUNT 6.8 K/uL (4.1-10.2)
[2017-06-25] MEDS ORDERED: DIAZEPAM5 MG PO (10:36)
[2017-06-25 10:39] LABS: ALKALINE PHOSPHATASE 42 IU/L (3-129); ANION GAP 5 MEQ/L (2-14); CHLORIDE 107 MEQ/L (99-109); GFR ESTIMATE (CALCULATED) > 59 mL/min/; POTASSIUM 4.2 MEQ/L (3.7-5.4); SAMPLE HEMOLYSIS CHECK 0; SAMPLE ICTERIC CHECK 0; SAMPLE LIPEMIA CHECK 0; SODIUM 138 MEQ/L (136-147); TOTAL BILIRUBIN 0.5 MG/DL (0.0-1.0); UREA NITROGEN (BUN) 12 mg/dL (9-23)
[2017-06-25 10:40] LABS: GLUCOSE 83 mg/dL (70-99)
[2017-06-25 11:54] VITALS: BP 147/87
== END 2017-06-25 15:25 | disposition home or self-care (01) ==
LOC: EME 21:03 → EDOF 23:50 → ENRESERV 23:59 → 5WEST 06-25 01:14
PROVIDERS: Emergency Medicine; Internal Medicine
DX: G40.901 Epilepsy, unspecified, not intractable, with status epilepticus (principal); T42.4X6A Underdosing of benzodiazepines, initial encounter; Z91.14 Patient's other noncompliance with medication regimen; Z91.19 Patient's noncompliance with other medical treatment and regimen; Y90.4 Blood alcohol level of 80-99 mg/100 ml; F14.11 Cocaine abuse, in remission; F11.11 Opioid abuse, in remission; Z59.0 Homelessness; K21.9 Gastro-esophageal reflux disease without esophagitis; F31.9 Bipolar disorder, unspecified; F43.10 Post-traumatic stress disorder, unspecified; F41.1 Generalized anxiety disorder; F60.3 Borderline personality disorder; F17.200 Nicotine dependence, unspecified, uncomplicated; Z72.89 Other problems related to lifestyle; Z91.013 Allergy to seafood; Z88.8 Allergy status to other drugs, medicaments and biological substances
CPT/HCPCS: 71010; 80053; 80175 90; 80306 90; 81003; 82550; 82553; 83690; 84702; 85027; 99281; 99284; G0378; G0480; J1644; J1953; J2060; J2250; J7030; J7050

== ENCOUNTER 2017-06-27 20:37 | Emergency (ER) | payer OTHER ==
[~2017-06-27] VITALS: Ht 175.3 cm; Wt 64.3 kg
[2017-06-27 21:30] LABS: HEMATOCRIT 33.4 % (36.0-46.0); MCH 30.4 PG (29.0-34.0); MCHC 33.2 G/DL (30.0-36.0); MCV 91.5 FL (83-99); MEAN PLAT.VOLUME 10.9 uM^3 (9.5-12.4); PLATELET COUNT 226 K/uL (156-360); RBC DIS.WIDTH-CV 13.9 % (11.8-14.6); RBC DIS.WIDTH-SD 47.2 % (39-53); RED BLOOD COUNT 3.65 M/uL (3.80-5.20); WHITE BLOOD COUNT 7.2 K/uL (4.1-10.2)
[2017-06-27 21:48] LABS: CHLORIDE 107 mEq/L (99-109); POTASSIUM 3.5 mEq/L (3.7-5.4); SODIUM 140 mEq/L (136-147)
[2017-06-27 21:51] LABS: GLUCOSE 101 mg/dL (70-99)
[2017-06-27 21:52] LABS: ANION GAP 9 MEQ/L (2-14); TOTAL BILIRUBIN 0.2 mg/dL (0.0-1.0)
[2017-06-27 21:53] LABS: SERUM ETHYL ALCOHOL < 10 mg/dL
[2017-06-27 21:54] LABS: ALKALINE PHOSPHATASE 52 IU/L (3-129); GFR ESTIMATE (CALCULATED) > 59 mL/min/
[2017-06-27 21:55] LABS: UREA NITROGEN (BUN) 11 mg/dL (9-23)
[2017-06-27 21:57] LABS: CREATINE KINASE 43 IU/L (1-294); TOTAL CK 43 IU/L (1-294)
[2017-06-27 22:04] LABS: CK-MB 0.5 ng/mL (0.0-4.9)
[2017-06-27] MEDS ORDERED: KEPPRA1000 MG PO (23:45)
[2017-06-28 01:19] VITALS: BP 124/72
== END 2017-06-28 01:20 | disposition home or self-care (01) ==
LOC: EME → EDBD 20:37 → EME 20:37
PROVIDERS: Nurse Practitioner Family
DX: G40.909 Epilepsy, unspecified, not intractable, without status epilepticus (principal); Z91.14 Patient's other noncompliance with medication regimen; K21.9 Gastro-esophageal reflux disease without esophagitis; J45.909 Unspecified asthma, uncomplicated; F41.9 Anxiety disorder, unspecified; F32.9 Major depressive disorder, single episode, unspecified; F31.9 Bipolar disorder, unspecified; F17.200 Nicotine dependence, unspecified, uncomplicated; Z88.8 Allergy status to other drugs, medicaments and biological substances
CPT/HCPCS: 70450; 71010; 80053; 81003; 82550; 82553; 85027; 93005; 99281; 99285; G0480; J2250

== ENCOUNTER 2017-07-20 16:23 | Emergency (ER) | payer OTHER ==
[~2017-07-20] VITALS: Ht 182.9 cm; Wt 60.1 kg
[2017-07-20] MEDS ORDERED: VIMPAT50 MG PO (16:35)
[2017-07-20 17:12] LABS: HEMATOCRIT 40.3 % (36.0-46.0); MCH 29.5 PG (29.0-34.0); MCHC 34.2 G/DL (30.0-36.0); MCV 86.1 FL (83-99); PLATELET COUNT 196 K/uL (156-360); RBC DIS.WIDTH-CV 13.4 % (11.8-14.6); RBC DIS.WIDTH-SD 42.2 % (39-53); RED BLOOD COUNT 4.68 M/uL (3.80-5.20); WHITE BLOOD COUNT 5.1 K/uL (4.1-10.2)
[2017-07-20 17:16] LABS: CHLORIDE 105 mEq/L (99-109); POTASSIUM 3.8 mEq/L (3.7-5.4); SODIUM 139 mEq/L (136-147)
[2017-07-20 17:19] LABS: GLUCOSE 85 mg/dL (70-99)
[2017-07-20 17:20] LABS: ANION GAP 10 MEQ/L (2-14)
[2017-07-20 17:21] LABS: TOTAL BILIRUBIN 0.3 mg/dL (0.0-1.0)
[2017-07-20 17:22] LABS: ALKALINE PHOSPHATASE 64 IU/L (3-129)
[2017-07-20 17:23] LABS: GFR ESTIMATE (CALCULATED) > 59 mL/min/
[2017-07-20 17:24] LABS: DIRECT BILIRUBIN 0.1 mg/dL (0.0-0.3); UREA NITROGEN (BUN) 14 mg/dL (9-23)
[2017-07-20 17:26] LABS: LIPASE 13 U/L (1.0-51.0)
[2017-07-20 17:31] LABS: QUANTITATIVE HCG < 4.0 MIU/ML
[2017-07-20 17:35] LABS: ADD MIUA? YES; BILIRUBIN NEGATIVE; BLOOD MODERATE; COLOR AMBER ((YELLOW)); GLUCOSE (STRIP) NEGATIVE; KETONES NEGATIVE; LEUKOCYTES NEGATIVE; NITRITE NEGATIVE; PROTEIN (STRIP) 30; SPECIFIC GRAVITY 1.032 (1.000-1.030)
[2017-07-20 17:46] LABS: BACTERIA NONE SEEN /HPF; EPITHELIAL CELLS RARE /HPF; HYALINE CASTS 0-5 /LPF; MUCUS 1+ /LPF; RED BLOOD CELLS 0-5 /HPF (0-5); UCUL ADDED? NO; UNCLASSIFIED CASTS 0-5 /LPF; WHITE BLOOD CELLS 0-5 /HPF (0-5)
[2017-07-20] MEDS ORDERED: NAPROSYN500 MG PO (19:31)
[2017-07-20] MEDS ORDERED: BENTYL20 MG PO (19:31)
[2017-07-20] MEDS ORDERED: ZOFRAN ODT4 MG PO (19:31)
[2017-07-20 19:54] VITALS: BP 114/65
[2017-07-22 13:20] LABS: CHLAMYDIA TRACHOMATIS NEGATIVE; NEISSERIA GONORRHOEAE NEGATIVE
== END 2017-07-20 19:53 | disposition home or self-care (01) ==
LOC: EME 16:23
PROVIDERS: Nurse Practitioner Family
DX: R10.32 Left lower quadrant pain (principal); M54.5 Low back pain; R31.9 Hematuria, unspecified; R30.0 Dysuria; R11.0 Nausea; Z87.440 Personal history of urinary (tract) infections; F17.200 Nicotine dependence, unspecified, uncomplicated
CPT/HCPCS: 74176; 80048; 80076; 81003; 83690; 84702; 85027; 87491; 87591; J1885